=== PATIENT | male | born 1935 | race Caucasian/White ===

== ENCOUNTER → 2018-12-14 | Outpatient (CLI) | payer MEDICARE, BC ==
[~2018-12-14] MED LIST: AMLO10 PO; LOSA50 PO; NAPR250 PO; ONDA4ODT MM; SIMV10 PO; TERA5 PO; TRAM50 PO; VARDENAFIL HCL PO
== END | disposition home or self-care (01) ==
LOC: LAB EV 10:30 → LAB SHORT 10:30
DX: D36.17 Benign neoplasm of peripheral nerves and autonomic nervous system of trunk, unspecified (principal)
CPT/HCPCS: 88305

== ENCOUNTER 2019-02-23 05:50 | Day surgery (SDC) | payer MEDICARE, BC ==
[~2019-02-23] VITALS: Ht 170.2 cm; Wt 75.5 kg
[~2019-02-23 05:50] MED LIST changes: +ALBU90OI INH; +ATOR10 PO; +CBD OIL TOP; +COQ1050 MG PO; +FINA5 PO; +HYDRA50 PO; +TAMS.4ER PO; +[UNRECOGNIZED DRUG - OTHER] PO
--- NOTE | 2019-02-23 06:38 | NUR ---
History, Chart, Medications and Allergies reviewed before start of procedure. Patient confirms NPO status and agrees with scheduled surgery. Patient States Post-Procedure ride home has been arranged with his , Vane.
--- NOTE | 2019-02-23 11:17 | NUR ---
PT C/O OF FEELING DIZZY, EASILY STABILIZES WHEN STANDING, PASSED ON TO FAMILY MEMBERS THAT PLAN ON BEING HOME WITH PATIENT TODAY. Discharge instructions reviewed with patient. Patient verbalizes understanding. Copy given to patient to take home. Patient States Post-Procedure ride home has been arranged. Discharged via wheelchair to private car for ride home. ALL BELONINGS RETURNED TO PATIENT.
== END 2019-02-23 22:45 | disposition home or self-care (01) ==
LOC: ORSCMMR 05:50 → ORD 07:30 → ORSCMMR 07:30
DX: K40.90 Unilateral inguinal hernia, without obstruction or gangrene, not specified as recurrent (principal); I10 Essential (primary) hypertension; J45.909 Unspecified asthma, uncomplicated; Z79.899 Other long term (current) drug therapy
CPT/HCPCS: 49650; S2900; A9270-GY; C1781; J0690; J1100; J1885; J2250; J2405; J2704; J3010; J7120

== ENCOUNTER 2020-02-11 17:25 | Observation (INO) | payer OTHER, MEDICARE, BC ==
[~2020-02-11] VITALS: Ht 170.2 cm; Wt 74.8 kg
[~2020-02-11 17:25] MED LIST changes: -ATOR10 PO; +Clotrimazole15 GM TOP; +DULERA 200 MCG/13 GM INH; +FERSU90EL PO; +Felodipine ER10 MG PO; +MAGNESIUM OXID500 MG PO; +OMEP20ER PO; +ZYRTEC10 M2 PO; +Zantac150 MG PO
[2020-02-11 19:49] LABS: BASOPHILS ABSOLUTE AUTO 0.01 K/mm3 (0.00-0.23); BASOPHILS PERCENT AUTO 0 % (0-2); EOSINOPHILS PERCENT AUTO 0 % (0-6); Hematocrit 32.4 % (37.0-53.0); Hemoglobin 10.7 g/dL (13.5-17.5); IMMATURE GRAN ABSOLUTE AUTO 0.02 K/mm3 (0.00-0.10); IMMATURE GRAN PERCENT AUTO 0 % (0-1); LYMPHOCYTES ABSOLUTE AUTO 0.34 K/mm3 (0.84-5.20); LYMPHOCYTES PERCENT AUTO 7 % (21-46); MONOCYTES PERCENT AUTO 8 % (4-13); Mean Corpuscular HGB 30.3 pg (26.0-34.0); Mean Corpuscular Volume 92 fL (80-100); NEUTROPHILS ABSOLUTE AUTO 4.16 K/mm3 (1.96-9.15); NEUTROPHILS PERCENT AUTO 84 % (41-73); Platelet Count 180 K/mm3 (150-400); RDW Coefficient Variation 13.2 % (11.7-14.2); RDW Standard Deviation 44.5 fL (35.1-46.3); Red Blood Cell Count 3.53 M/mm3 (4.30-5.90); White Blood Cell Count 4.93 K/mm3 (4.00-11.30)
[2020-02-11 20:19] LABS: Troponin I 0.025 ng/mL (0.000-0.040)
[2020-02-11 20:35] LABS: Albumin/Globulin Ratio 0.8 (0.8-1.8); Bilirubin, Total 1.1 mg/dL (0.1-1.0); Bun/Creatinine Ratio 17.4 (12.0-20.0); Calcium, Blood 8.4 mg/dL (8.5-10.1); Creatinine, Blood 3.62 mg/dL (0.60-1.20); Globulin, Blood 3.6 g/dL (2.2-4.0); Potassium, Blood 4.2 mmol/L (3.5-5.5); Total Protein, Blood 6.6 g/dL (6.4-8.2)
[2020-02-11] MEDS ORDERED: ATOR40TA PO (21:54)
[2020-02-11] MEDS ORDERED: FELODIPINE ER10 MG PO (21:55)
[2020-02-11] MEDS ORDERED: METO25ER PO ×2 (21:55→21:56)
[2020-02-11] MEDS ORDERED: HYDCHL25 PO (21:56)
[2020-02-11] MEDS ORDERED: FAMO20 PO (21:56)
[2020-02-11] MEDS ORDERED: Aspir 8181 MG PO (21:57)
[2020-02-11] MEDS ORDERED: LOSA25 PO (21:57)
[2020-02-11] MEDS ORDERED: PRED1 PO (21:58)
--- NOTE | 2020-02-11 23:08 | NUR ---
84 YR OLD MALE ADMITTED TO FLOOR FROM THE ED WITH DX OF POSITIVE COVID 19. DROPLET PRECAUTIONS INITIATED PER MD ORDERS. ALERT AND ORIENTED. DISPLAYS ABILITY TO AMBULATE TO BR WITHOUT ASSIST. WILL CONT TO ASSESS. ORIENTED TO USE OF CALL LIGHT. CALL LIGHT IN REACH
--- NOTE | 2020-02-12 04:24 | NUR ---
SHIFT SUMMARY HAS BEEN RESTING QUITELY WITH OCCASIONAL INTERRUPTIONS THIS SHIFT. IVF INFUSING AT 75 ML/HR. DROPLET ISOLATION MAINTAINED FOR COVID 19 CARE. CALL LIGHT IN REACH. NO NOTED S/S ACUTE PHYSICAL DISTRESS AT THIS TIME.
[2020-02-12 05:09] LABS: BASOPHILS ABSOLUTE AUTO 0.01 K/mm3 (0.00-0.23); BASOPHILS PERCENT AUTO 0 % (0-2); EOSINOPHILS PERCENT AUTO 0 % (0-6); Hematocrit 27.3 % (37.0-53.0); Hemoglobin 8.9 g/dL (13.5-17.5); IMMATURE GRAN PERCENT AUTO 0 % (0-1); LYMPHOCYTES ABSOLUTE AUTO 0.39 K/mm3 (0.84-5.20); LYMPHOCYTES PERCENT AUTO 15 % (21-46); MONOCYTES ABSOLUTE AUTO 0.26 K/mm3 (0.16-1.47); MONOCYTES PERCENT AUTO 10 % (4-13); Mean Corpuscular HGB 30.7 pg (26.0-34.0); Mean Corpuscular HGB Conc 32.6 g/dL (31.5-36.5); Mean Corpuscular Volume 94 fL (80-100); Mean Platelet Volume 10.7 fL (9.1-12.4); NEUTROPHILS ABSOLUTE AUTO 1.87 K/mm3 (1.96-9.15); NEUTROPHILS PERCENT AUTO 74 % (41-73); Platelet Count 153 K/mm3 (150-400); RDW Coefficient Variation 13.2 % (11.7-14.2); RDW Standard Deviation 45.7 fL (35.1-46.3); White Blood Cell Count 2.53 K/mm3 (4.00-11.30)
[2020-02-12 05:35] LABS: Albumin, Blood 2.4 g/dL (3.4-5.0); Albumin/Globulin Ratio 0.8 (0.8-1.8); Bilirubin, Total 0.5 mg/dL (0.1-1.0); Bun/Creatinine Ratio 18.5 (12.0-20.0); Calcium, Blood 8.1 mg/dL (8.5-10.1); Creatinine, Blood 3.36 mg/dL (0.60-1.20); Globulin, Blood 3.2 g/dL (2.2-4.0); Total Protein, Blood 5.6 g/dL (6.4-8.2)
[2020-02-12 07:05] LABS: Adenovirus Not Detected (NOT DETECT); Coronavirus 229E Not Detected (NOT DETECT); Coronavirus HKU1 Not Detected (NOT DETECT); Coronavirus NL63 Not Detected (NOT DETECT); Coronavirus OC43 Not Detected (NOT DETECT)
[2020-02-12 07:06] LABS: Bordetella pertussis Not Detected (NOT DETECT); Chlamydophila pneumoniae Not Detected (NOT DETECT); Human Metapneumovirus Not Detected (NOT DETECT); Human Rhinovirus/Enterovirus Not Detected (NOT DETECT); Influenza A/2009-H1 Not Detected (NOT DETECT); Influenza A/H1 Not Detected (NOT DETECT); Influenza A/H3 Not Detected (NOT DETECT); Influenza B Not Detected (NOT DETECT); Mycoplasma pneumoniae Not Detected (NOT DETECT); Parainfluenza Virus 1 Not Detected (NOT DETECT); Parainfluenza Virus 2 Not Detected (NOT DETECT); Parainfluenza Virus 3 Not Detected (NOT DETECT); Parainfluenza Virus 4 Not Detected (NOT DETECT); Respiratory Syncytial Virus Not Detected (NOT DETECT); SARS-Cov-2 (COVID-19), BioFire Detected (NOT DETECT)
[2020-02-12] MEDS ORDERED: MAGNESIUM OXID500 MG PO (10:20)
[2020-02-12] MEDS ORDERED: LOSA25 PO (10:21)
[2020-02-12] MEDS ORDERED: OYSTER SHELL 51 EACH PO (10:22)
[2020-02-12] MEDS ORDERED: HYDCHL25 PO (10:23)
[2020-02-12] MEDS ORDERED: FELODIPINE ER10 MG PO (10:24)
[2020-02-12] MEDS ORDERED: TAMS.4ER PO (10:25)
[2020-02-12] MEDS ORDERED: FINA5 PO (10:25)
[2020-02-12] MEDS ORDERED: ZYRTEC10 M2 PO (10:25)
--- NOTE | 2020-02-12 13:06 | NUR ---
UPDATED MED REC MED REC HAS BEEN UPDATED AND NOW COMPLETE. DR. CIFUENTES HAS BEEN NOTIFIED OF THIS. VERBAL ORDER TO D/C DUPLICATE ORDER OF METOPROLOL 12.5 MG.
--- NOTE | 2020-02-12 18:23 | NUR ---
Shift Summary A/OX4, pleasant and cooperative with care. Up in chair for dinner, patient refused chair for lunch. Oxygen saturation is 93% on RA. PT/OT evaluated patient today, appears to be short of breath with exertion. Baseline oxygen is 2L @ HS. Med rec completed today as patient brought in meds. Up in room with SBA, continent to the bathroom. Calls appropriately for needs. Tele: SR PVC's 85. L/S with fine crackles at bases. Will continue to monitor and report to oncoming RN.
--- NOTE | 2020-02-13 04:42 | NUR ---
SUMMARY PT HAD NOTED TEMP THIS SHIFT. PT GIVEN TYLENOL W/ IMPROVEMENT. PT DENIES ANY INCREASE IN SOB. PT HAS BEEN VOIDING T/O SHIFT. PT HAD NO OTHER COMPLAINTS OR ISSUES NOTED. PT CURRENTLY SLEEPING IN NO DISTRESS. CALL LIGHT IN REACH.
[2020-02-13 05:43] LABS: Bun/Creatinine Ratio 17.4 (12.0-20.0); Calcium, Blood 8.2 mg/dL (8.5-10.1); Creatinine, Blood 3.17 mg/dL (0.60-1.20); Potassium, Blood 4.1 mmol/L (3.5-5.5)
--- NOTE | 2020-02-13 17:55 | NUR ---
NO ACUTE CHANGES THIS SHIFT. PT WAS ENCOURAGED TO BE IN THE PRONE POSITION FOR A WHILE WHICH HE STATED HELPED HIS BREATHING. HE WAS ENCOURAGED TO SIT BY THE WINDOW WHICH HE SAID HE ENJOYED. PT STATED HE DOESNT FEEL WELL BUT IS FEELING BETTER OVER ALL . SO STILL FEELING BAD BUT BETTER... CALL LIGHT WITHIN REACH.
--- NOTE | 2020-02-14 03:01 | NUR ---
SUMMARY PT HAD NO NOTED FEVERS THIS SHIFT. PT DENIES ANY PERIODS OF SOB. PT DID PREFER TO USE A URINAL TO VOID AND DID NOT WANT TO GET UP. PT REPORTS FEELING FATIGUED AND WENT TO SLEEP EARLY. PT HAS BEEN SLEEPING WELL. PT CURRENTLY SLEEPING AND IN NO DISTRESS. CALL LIGHT IN REACH.
--- NOTE | 2020-02-14 17:01 | NUR ---
SHIFT SUMMARY PT A/O X4; PLEASANT AND COOPERATIVE WITH CARE. NO ACUTE CHANGES THIS SHIFT. NO FEVERS NOTED AND TITRATED DOWN TO 1 LITER O2 VIA NC. USES THE URINAL IND IN THE BED. ENCOURAGED BY P.T. TO AMBULATE. PT AMBULATES WITH A FWW. VSS; RESTING COMFORTABLY W/CALL LIGHT IN REACH.
--- NOTE | 2020-02-15 04:49 | NUR ---
SHIFT SUMMARY ASSUMED CARE OF PT AT 1900. PT IS A/OX4. HEART SOUNDS REGULAR, TELEL SHOWS SINUS @ 90. LUNG SOUNDS CLEAR, STATES HE HAS SOB WITH EXCERTION, ON 2L NC AT NIGHT PER BASELINE. PT WAS INDEPENDENT TO BATHROOM. PT HAS NO OTHER COMPLAINTS. PT SLEPT DURING THE NIGHT. CALL LIGHT IN REACH, BED IN LOWEST POSITION, WILL CONTINUE TO MONITOR.
--- NOTE | 2020-02-15 17:29 | NUR ---
SHIFT SUMMARY PT A/O X4; PLEASANT AND COOPERATIVE WITH CARE. IND/SBA WITH A WALKER TO THE BATHROOM. PT WORKED WITH P.T. TODAY. CURRENTLY ON 1 LITER O2 VIA NC. ON 2 LITERS AT NOC AT BASELINE. VSS; RESTING QUIETLY WITH CALL LIGHT IN REACH.
--- NOTE | 2020-02-16 05:04 | NUR ---
SHIFT SUMMARY PATIENT HAD NO ACUTE CHANGES OBSERVED. AXOX 4 AND SBA TO BR. SOB W/EXERTION. ON 1L O2 NC. PIV REMAINS INTACT. FINISHING SUPERVISOR REPORTS NSR 73. TAKES MEDS WHOLE WITH WATER. DENIES PAIN AND N/V. VSS/AFEBRILE. DROPLET CONTACT. COVID-19 POSITIVE. COOPERATIVE WITH CARE. CALL LIGHT IN REACH. BED IN LOWEST POSITION. WILL CONTINUE TO MONITOR UNTIL DAY SHIFT NURSE ASSUMES CARE.
--- NOTE | 2020-02-16 12:52 | NUR ---
SHIFT SUMMARY. 1230 PT DISCHARGED HOME VIA PERSONAL VEHICLE ACCOMPANIED AND DRIVEN BY FAMILY. PT ESCORTED TO FACILITY ENTRANCE BY THIS RN. IV REMOVED. D/C INSTRUCTIONS REVIEWED WITH PT AND COPY PROVIDED. PT EDUCATED TO SELF QUARINTINE THROUGH 02/22/[address] DALLAS. INFECTION CONTROL AWARE OF PT'S D/C. NO NEW CHANGES OR CONCERNS.
== END 2020-02-16 12:25 | disposition home or self-care (01) ==
LOC: ER 17:25 → MEDS 22:21
PROVIDERS: Internal Medicine; Physician Assistant; ADMIT Internal Medicine
DX: U07.1 COVID-19 (principal); J96.21 Acute and chronic respiratory failure with hypoxia; J44.9 Chronic obstructive pulmonary disease, unspecified; N17.9 Acute kidney failure, unspecified; I12.9 Hypertensive chronic kidney disease with stage 1 through stage 4 chronic kidney disease, or unspecified chronic kidney disease; N18.4 Chronic kidney disease, stage 4 (severe); E86.0 Dehydration; K21.9 Gastro-esophageal reflux disease without esophagitis; I77.6 Arteritis, unspecified; I27.20 Pulmonary hypertension, unspecified; E78.5 Hyperlipidemia, unspecified; I34.0 Nonrheumatic mitral (valve) insufficiency; Z79.82 Long term (current) use of aspirin; Z79.52 Long term (current) use of systemic steroids; Z79.899 Other long term (current) drug therapy; Z88.5 Allergy status to narcotic agent; Z23 Encounter for immunization; Z87.891 Personal history of nicotine dependence
CPT/HCPCS: 0202U; 36415; 71045; 80048; 80053; 84484; 85025; 93005; 93010; 94760; 96361; 96372; 96374; 97110; 97116; 97162; 97166; 97535; 99285-25; A9270; A9270-GY; G0008; G0378; J1644; J2405; J7120; J7512; Q2038

== ENCOUNTER 2024-07-28 09:32 | Emergency (ER) | payer MEDICARE ==
[~2024-07-28] VITALS: Ht 170.2 cm; Wt 74.8 kg
[~2024-07-28 09:32] MED LIST changes: +ATOR40TA PO; +AZAT50 PO; +Amiodarone HCl200 MG PO; +Aspir 8181 MG PO; +BUME1 PO; +CALCIUM PO; +COQ-10100 MG PO; +ELIQUIS2.5 MG PO; +FAMO20 PO; +FELODIPINE ER10 MG PO; +FERSU300 PO; +FLOMAX0.4 MG PO; +FORMOTEROL20 MCG/2 M; +Flonase 0.05% N16 GM; +HYDCHL25 PO; +Imdur-ER60 MG PO; +LOSA25 PO; +METO25ER PO; +OYSTER SHELL 51 EACH PO; +PRED1 PO
[2024-07-28 10:03] LABS: BASOPHILS ABSOLUTE AUTO 0.02 K/mm3 (0.00-0.23); BASOPHILS PERCENT AUTO 0 % (0-2); EOSINOPHILS ABSOLUTE AUTO 0.18 K/mm3 (0.00-0.68); EOSINOPHILS PERCENT AUTO 3 % (0-6); Hematocrit 37.1 % (37.0-53.0); Hemoglobin 12.2 g/dL (13.5-17.5); IMMATURE GRAN ABSOLUTE AUTO 0.02 K/mm3 (0.00-0.10); IMMATURE GRAN PERCENT AUTO 0 % (0-1); LYMPHOCYTES ABSOLUTE AUTO 0.77 K/mm3 (0.84-5.20); LYMPHOCYTES PERCENT AUTO 12 % (21-46); MONOCYTES ABSOLUTE AUTO 0.73 K/mm3 (0.16-1.47); MONOCYTES PERCENT AUTO 11 % (4-13); Mean Corpuscular HGB 32.1 pg (26.0-34.0); Mean Corpuscular HGB Conc 32.9 g/dL (31.5-36.5); Mean Corpuscular Volume 98 fL (80-100); Mean Platelet Volume 10.1 fL (9.1-12.4); NEUTROPHILS ABSOLUTE AUTO 4.74 K/mm3 (1.96-9.15); NEUTROPHILS PERCENT AUTO 73 % (41-73); Platelet Count 204 K/mm3 (150-400); RDW Coefficient Variation 13.9 % (11.7-14.2); RDW Standard Deviation 49.9 fL (35.1-46.3); White Blood Cell Count 6.46 K/mm3 (4.00-11.30)
[2024-07-28 10:24] LABS: Albumin, Blood 3.2 g/dL (3.4-5.0); Albumin/Globulin Ratio 1.1 (0.8-1.8); Bilirubin, Total 0.4 mg/dL (0.1-1.0); Bun/Creatinine Ratio 15.1 (12.0-20.0); Calcium, Blood 8.4 mg/dL (8.5-10.1); Creatinine, Blood 3.38 mg/dL (0.60-1.20); Potassium, Blood 4.2 mmol/L (3.5-5.5); Total Protein, Blood 6.2 g/dL (6.4-8.2)
[2024-07-28] MEDS ORDERED: NS 1,000 ML IV SCH (11:30)
[2024-07-28] MEDS ORDERED: FURO20 PO (14:27)
[2024-07-28 14:54] VITALS: BP 126/83
== END 2024-07-28 14:50 | disposition home or self-care (01) ==
LOC: ER 09:32
PROVIDERS: Student in an Organized Health Care Education/Training Program
DX: R42 Dizziness and giddiness (principal); T50.1X5A Adverse effect of loop [high-ceiling] diuretics, initial encounter; N18.9 Chronic kidney disease, unspecified; Z87.891 Personal history of nicotine dependence
CPT/HCPCS: 71045; 80053; 84484; 85025; 93005; 93010; 99284-25; J7030

== ENCOUNTER 2024-10-02 16:05 | Inpatient (IN) | payer MEDICARE ==
[~2024-10-02] VITALS: Ht 170.2 cm; Wt 76.0 kg
[~2024-10-02 16:05] MED LIST changes: +FURO20 PO; +METO50ER PO
[2024-10-02 19:47] LABS: BASOPHILS ABSOLUTE AUTO 0.01 K/mm3 (0.00-0.23); BASOPHILS PERCENT AUTO 0 % (0-2); EOSINOPHILS ABSOLUTE AUTO 0.17 K/mm3 (0.00-0.68); EOSINOPHILS PERCENT AUTO 3 % (0-6); Hematocrit 32.0 % (37.0-53.0); Hemoglobin 10.5 g/dL (13.5-17.5); IMMATURE GRAN ABSOLUTE AUTO 0.01 K/mm3 (0.00-0.10); IMMATURE GRAN PERCENT AUTO 0 % (0-1); LYMPHOCYTES ABSOLUTE AUTO 0.63 K/mm3 (0.84-5.20); LYMPHOCYTES PERCENT AUTO 12 % (21-46); MONOCYTES ABSOLUTE AUTO 0.69 K/mm3 (0.16-1.47); MONOCYTES PERCENT AUTO 13 % (4-13); Mean Corpuscular HGB Conc 32.8 g/dL (31.5-36.5); Mean Corpuscular Volume 99 fL (80-100); NEUTROPHILS ABSOLUTE AUTO 3.66 K/mm3 (1.96-9.15); NEUTROPHILS PERCENT AUTO 71 % (41-73); NRBC ABSOLUTE 0.00 K/mm3 (0.00-0.02); NRBC Auto 0.0 /100 WBC (0.0-0.2); Platelet Count 186 K/mm3 (150-400); RDW Coefficient Variation 14.6 % (11.7-14.2); RDW Standard Deviation 52.3 fL (35.1-46.3)
[2024-10-02] MEDS ORDERED: Ondansetron HCl 2 MG / ML 2ML Vial IV PRN (20:05)
[2024-10-02] MEDS ORDERED: Albuterol 2.5 MG/3 ML VIAL INH PRN (20:15)
[2024-10-02] MEDS ORDERED: Formoterol/Mometasone MDI 5/200 mcg 13 GM INH SCH (20:30)
[2024-10-02 21:03] VITALS: BP 153/63
[2024-10-02 21:45] LABS: Alanine Aminotransfer (ALT/SGP 36.0 U/L (12-78); Albumin, Blood 3.3 g/dL (3.4-5.0); Albumin/Globulin Ratio 1.1 (0.8-1.8); Anion Gap 8.0 mmol/L (3-11); Aspartate Aminotrans (AST/SGOT 23.0 U/L (12-37); Bilirubin, Total 0.9 mg/dL (0.1-1.0); Blood Urea Nitrogen 45.0 mg/dL (8-24); CO2, Blood 27.0 mmol/L (21-32); Calcium, Blood 8.7 mg/dL (8.5-10.1); Chloride, Blood 109.0 mmol/L (98-108); Creatinine, Blood 2.89 mg/dL (0.60-1.20); Globulin, Blood 3.1 g/dL (2.2-4.0); Glucose, Blood 110.0 mg/dL (70-99); Potassium, Blood 4.0 mmol/L (3.5-5.5); Sodium, Blood 140.0 mmol/L (136-145); Total Protein, Blood 6.4 g/dL (6.4-8.2)
--- NOTE | 2024-10-02 22:55 | NUR ---
PATIENT IS A NEW ADMIT FROM THE ED. ALERT ORIENTED ARRIVED VIA W/C. SBA ASSIST TRANSFER TO BED. REPORTS NOT DIZZY AT THIS TIME. DENIES CHEST PAIN, SOB, AND N/V. ONE ASSIST TO BR. TELEMETRY PLACED AND SB 50. DAUGHTER PRESENT FROM [place] AND STAYING OVERNIGHT. REPORTS LIVES ALONE WITH DOG IN HIS HOUSE. ORIENTED TO ROOM AND CALL LIGHT SYSTEM. WCTM.
[2024-10-03 00:05] VITALS: BP 130/50
--- NOTE | 2024-10-03 02:20 | NUR ---
TELEMETRY REMAINS SINUS TERRY 51. SLEEPING. WCTM.
--- NOTE | 2024-10-03 04:03 | NUR ---
SHIFT SUMMARY PATIENT HAD NO ACUTE CHANGES. ALERT ORIENTED AND ONE ASSIST TO BR. DENIES CHEST PAIN, SOB, AND N/V. ON ROOM AIR. PIV INTACT. TELEMETRY SB 51. DAUGHTER STAYED OVERNIGHT. NO NEW CONCERNS. CALL LIGHT IN REACH. BED IN LOWEST POSITION. WILL CONTINUE TO MONITOR UNTIL DAY SHIFT NURSE ASSUMES CARE.
[2024-10-03 04:28] VITALS: BP 141/69
[2024-10-03 05:03] LABS: Hematocrit 31.7 % (37.0-53.0); Hemoglobin 10.2 g/dL (13.5-17.5); Mean Corpuscular HGB Conc 32.2 g/dL (31.5-36.5); Mean Corpuscular Volume 99 fL (80-100); NRBC ABSOLUTE 0.00 K/mm3 (0.00-0.02); NRBC Auto 0.0 /100 WBC (0.0-0.2); Platelet Count 168 K/mm3 (150-400); RDW Coefficient Variation 14.1 % (11.7-14.2); RDW Standard Deviation 51.6 fL (35.1-46.3)
[2024-10-03 05:26] LABS: Anion Gap 7.0 mmol/L (3-11); Blood Urea Nitrogen 46.0 mg/dL (8-24); CO2, Blood 26.0 mmol/L (21-32); Calcium, Blood 8.1 mg/dL (8.5-10.1); Chloride, Blood 112.0 mmol/L (98-108); Creatinine, Blood 2.82 mg/dL (0.60-1.20); Glucose, Blood 83.0 mg/dL (70-99); Magnesium, Blood 2.4 mg/dL (1.6-2.4); Potassium, Blood 4.0 mmol/L (3.5-5.5); Sodium, Blood 141.0 mmol/L (136-145)
[2024-10-03 07:34] VITALS: BP 142/65
[2024-10-03] MEDS ORDERED: ATOR40TA PO (14:43)
[2024-10-03] MEDS ORDERED: [UNRECOGNIZED DRUG - OTHER] PO (14:49)
[2024-10-03] MEDS ORDERED: FLUTICASONE-SAL12 G1 INH (14:50)
[2024-10-03] MEDS ORDERED: CALCIUM 250 MG1 EACH PO (14:54)
[2024-10-03] MEDS ORDERED: LIDO700A20 TOP (14:55)
[2024-10-03] MEDS ORDERED: ALEVAZOL56.7 G1 TOP (14:56)
[2024-10-03] MEDS ORDERED: FERSU300 PO (14:56)
[2024-10-03] MEDS ORDERED: Ketoconazole120 ML TOP (14:59)
[2024-10-03] MEDS ORDERED: AMLO5 PO (15:00)
[2024-10-03] MEDS ORDERED: Diovan40 MG PO (15:02)
[2024-10-03] MEDS ORDERED: ASCO500 PO (15:04)
[2024-10-03] MEDS ORDERED: LORA10ER PO (15:05)
[2024-10-03 15:18] VITALS: BP 159/66
--- NOTE | 2024-10-03 16:49 | NUR ---
SHIFT SUMMARY: A&OX4 THIS SHIFT. PLEASANT AND COOPERATIVE WITH CARE PROVIDED BY STAFF. TREATED WITH IV ABX PER EMAR. DENIES PAIN THROUGHOUT THIS SHIFT. PT HAS BEEN RESTING ON AND OFF WITH CPAP. O2 SATS >90% WITH CPAP AND ON RA. COMPLAINTS OF CONSTIPATION AND TREATED PER EMAR, YET HAS NOT HAD A BOWEL MOVEMENT. BED REMAINS IN THE LOWEST POSITION WITH CALL IN NEAR.
--- NOTE | 2024-10-03 16:58 | NUR ---
SHIFT SUMMARY: A&OX4 THIS SHIFT. PLEASANT AND COOPERATIVE WITH CARE. DAUGHTER IN ROOM THROUGHOUT DAY. PT HAS GOTTEN OUT OF BED TO AMBULATE AROUND ROOM MULTIPLE TIMES THIS SHIFT. DENIES COMPLAINTS OF CHEST PAIN OR PRESSURE. HEART RATE REMAINS BRADYCARDIC. BED IN THE LOWEST POSITION. CALL LT WITHIN REACH.
[2024-10-03 19:41] VITALS: BP 148/57
[2024-10-03] MEDS ORDERED: Misc. Capsule PO SCH (21:00)
[2024-10-03] MEDS ORDERED: Calcium 500 MG/Vit D 200 Units Tab PO SCH (21:00)
[2024-10-04] VITALS (7 sets, daily range): BP systolic 130–155; BP diastolic 60–74
--- NOTE | 2024-10-04 04:50 | NUR ---
SHIFT SUMMARY NOC PT A/O X 4. PLEASANT AND COOPERATIVE WITH CARE. VSS. NO ACUTE EVENTS ON TELE TO REPORT. PT RUNNING SINUS TERRY IN HIGH 50'S. PT STILL HAVING C/O OF SOB WITH AMBULATION AND HAS BEEN USING CALL LIGHT FOR SBA TO BATHROOM FOR SAFETY. PT FAMILY WILL BRING IN BOTTLE FOR AVOCOPAN IN AM SO PHARMACY CAN PUT SCAN TAG ON IT. PT HAD HOME MEDICATIONS ON PERSON AN THEY HAVE BEEN LABELED AND PUT IN LOCKED MED DRAWER. PT HAS CARDIOLOGY CONSULT CALLED IN FOR TODAY. PT CURRENTLY RESTING WITH BED IN LOWEST POSITION, AND CALL LIGHT WITHIN REACH.
[2024-10-04 05:06] LABS: BASOPHILS ABSOLUTE AUTO 0.02 K/mm3 (0.00-0.23); BASOPHILS PERCENT AUTO 0 % (0-2); EOSINOPHILS ABSOLUTE AUTO 0.25 K/mm3 (0.00-0.68); EOSINOPHILS PERCENT AUTO 6 % (0-6); Hematocrit 31.8 % (37.0-53.0); Hemoglobin 10.5 g/dL (13.5-17.5); IMMATURE GRAN ABSOLUTE AUTO 0.01 K/mm3 (0.00-0.10); IMMATURE GRAN PERCENT AUTO 0 % (0-1); LYMPHOCYTES ABSOLUTE AUTO 0.73 K/mm3 (0.84-5.20); LYMPHOCYTES PERCENT AUTO 16 % (21-46); MONOCYTES ABSOLUTE AUTO 0.70 K/mm3 (0.16-1.47); MONOCYTES PERCENT AUTO 16 % (4-13); Mean Corpuscular HGB Conc 33.0 g/dL (31.5-36.5); Mean Corpuscular Volume 97 fL (80-100); NEUTROPHILS ABSOLUTE AUTO 2.78 K/mm3 (1.96-9.15); NEUTROPHILS PERCENT AUTO 62 % (41-73); NRBC ABSOLUTE 0.00 K/mm3 (0.00-0.02); NRBC Auto 0.0 /100 WBC (0.0-0.2); Platelet Count 177 K/mm3 (150-400); RDW Coefficient Variation 13.9 % (11.7-14.2); RDW Standard Deviation 49.8 fL (35.1-46.3)
[2024-10-04 05:28] LABS: Anion Gap 8.0 mmol/L (3-11); Blood Urea Nitrogen 38.0 mg/dL (8-24); CO2, Blood 25.0 mmol/L (21-32); Calcium, Blood 8.1 mg/dL (8.5-10.1); Chloride, Blood 112.0 mmol/L (98-108); Creatinine, Blood 2.72 mg/dL (0.60-1.20); Glucose, Blood 91.0 mg/dL (70-99); Potassium, Blood 4.0 mmol/L (3.5-5.5); Sodium, Blood 141.0 mmol/L (136-145)
[2024-10-04] MEDS ORDERED: Isosorbide Mononitrate 60 MG TABCR PO SCH (09:00)
[2024-10-04] MEDS ORDERED: Fluticasone 0.05% Nasal Spray SCH (09:00)
[2024-10-04] MEDS ORDERED: Lidocaine 4% 1 Patch TOP SCH (09:00)
[2024-10-04] MEDS ORDERED: Misc. Capsule PO SCH (10:00)
--- NOTE | 2024-10-04 14:12 | NUR ---
Pt. is wake in bed when he welcomes my visit. Pt. is pleasant and very quickly the life review centers on matters of ju and belief. Pt. displayed evidence of trust and engagement. Facilitated more life review and listened with empathy and interest as the Pt. verbalized some grief about the fairly recent passing of his . Pastoral bereavement has a positive affect. Prayed with the Pt. Pt. verbalized gratitude for the spiritual care visit and welcomed this product tester fiberglass to bring him a bible. After visit a bible is brought to him. Pt. verbalized gratitude for the spiritual care visit.
--- NOTE | 2024-10-04 16:22 | NUR ---
SHIFT SUMMARY: PATIENT IS ALERT AND ORIENTEDX4/INDEPENDENT/SBA. NO EVENTS ON TELE; PENDING A STRESS TEST 10/05/24 AND PACER PLACEMENT 10/07/24. SEE ORDERS. PATIENT STARTED ON NEW MEDICATIONS TODAY PER CARDIOLOGY. PATIENT IN HIS ROOM, IN BED, CALL LIGHT WITHIN REACH, NO SIGNS OR SYMPTOMS OF DISTRESS,PLAN OF CARE ONGOING.
[2024-10-04] MEDS ORDERED: Heparin Sodium,Porcine 5,000 UNIT/0.5 ML SDV SC SCH (21:00)
[2024-10-05 04:41] VITALS: BP 138/65
--- NOTE | 2024-10-05 05:19 | NUR ---
SHIFT SUMMARY NOC PT A/O X 4. PLEASANT AND COOPERATIVE WITH CARE. HR HAS BEEN IN 50'S SINUS RHYTHM/BBB ON TELE. PT TOOK SHOWER AT BEGINNING OF SHIFT AND HAD ALLERGIC REACTION WITH RASH AND ITCHING, BENADRYL ORDERED AND RELIEVED ITCHING AND RASH. PT HAS BEEN NPO SINCE MIDNIGHT FOR STRESS TEST TODAY. PT HAD CARIOLOGY CONSULT YESTERDAY WITH POSSIBLE PACEMAKER PLACEMENT ON TUESDAY. PT CURRENTLY RESTING WITH BED IN LOWEST POSITION, AND CALL LIGHT WITHIN REACH.
[2024-10-05 05:24] LABS: BASOPHILS ABSOLUTE AUTO 0.01 K/mm3 (0.00-0.23); BASOPHILS PERCENT AUTO 0 % (0-2); EOSINOPHILS ABSOLUTE AUTO 0.22 K/mm3 (0.00-0.68); EOSINOPHILS PERCENT AUTO 5 % (0-6); Hematocrit 31.4 % (37.0-53.0); Hemoglobin 10.2 g/dL (13.5-17.5); IMMATURE GRAN ABSOLUTE AUTO 0.01 K/mm3 (0.00-0.10); IMMATURE GRAN PERCENT AUTO 0 % (0-1); LYMPHOCYTES ABSOLUTE AUTO 0.60 K/mm3 (0.84-5.20); LYMPHOCYTES PERCENT AUTO 13 % (21-46); MONOCYTES ABSOLUTE AUTO 0.61 K/mm3 (0.16-1.47); MONOCYTES PERCENT AUTO 14 % (4-13); Mean Corpuscular HGB Conc 32.5 g/dL (31.5-36.5); Mean Corpuscular Volume 98 fL (80-100); NEUTROPHILS ABSOLUTE AUTO 3.08 K/mm3 (1.96-9.15); NEUTROPHILS PERCENT AUTO 68 % (41-73); NRBC ABSOLUTE 0.00 K/mm3 (0.00-0.02); NRBC Auto 0.0 /100 WBC (0.0-0.2); Platelet Count 184 K/mm3 (150-400); RDW Coefficient Variation 13.9 % (11.7-14.2); RDW Standard Deviation 50.3 fL (35.1-46.3)
[2024-10-05 06:00] LABS: Anion Gap 8.0 mmol/L (3-11); Blood Urea Nitrogen 36.0 mg/dL (8-24); CO2, Blood 26.0 mmol/L (21-32); Calcium, Blood 8.5 mg/dL (8.5-10.1); Chloride, Blood 111.0 mmol/L (98-108); Creatinine, Blood 2.87 mg/dL (0.60-1.20); Glucose, Blood 95.0 mg/dL (70-99); Potassium, Blood 4.4 mmol/L (3.5-5.5); Sodium, Blood 141.0 mmol/L (136-145)
[2024-10-05 07:38] VITALS: BP 137/59
[2024-10-05 11:26] VITALS: BP 141/64
--- NOTE | 2024-10-05 16:10 | NUR ---
SHIFT SUMMARY: PATIENT UNDERWENT HIS STRESS TEST TODAY; PER DR. DUNBAR TO NOTIFY THE PATIENT THAT THE RESULTS WERE NORMAL. PT NOTIFIED. PATIENT AWAITING PACER PLACEMENT FOR Tuesday10/07/24. NO EVENTS ON TELE. HE'S IN BED, ALERT, CALL LIGHT WITHIN REACH, NO SIGNS OR SYMPTOMS OF DISTRESS, PLAN OF CARE ONGOING.
[2024-10-05 16:53] VITALS: BP 135/65
[2024-10-05 19:37] VITALS: BP 148/65
[2024-10-05 19:38] VITALS: BP 148/65
[2024-10-06] VITALS (7 sets, daily range): BP systolic 127–159; BP diastolic 60–80
--- NOTE | 2024-10-06 06:05 | NUR ---
SUMMARY A&O X4. VSS. SELF MANAGING & ASKS FOR ASSISTANCE IF NEEDED. ON TELE-W/ SINUS TERRY READING CONSTANTLY YET ASYMPTOMATIC. PT IS VERY AWARE OF THE PLAN TO HAVE A PACEMAKER ON TUESDAY THEN DISCHARGE THE DAY AFTER. RESTED WELL, NO CONCERN TONIGHT. REMOVED IV DUE TO LEAK AND BLOOD CLOT PARTICLES SURROUNDING.
[2024-10-06] MEDS ORDERED: CHLORHEXIDINE 4% TOP ONE (08:30)
[2024-10-06] MEDS ORDERED: [UNRECOGNIZED DRUG - OTHER] TOP ONE (08:30)
[2024-10-06 08:56] LABS: BASOPHILS ABSOLUTE AUTO 0.01 K/mm3 (0.00-0.23); BASOPHILS PERCENT AUTO 0 % (0-2); EOSINOPHILS ABSOLUTE AUTO 0.19 K/mm3 (0.00-0.68); EOSINOPHILS PERCENT AUTO 4 % (0-6); Hematocrit 34.1 % (37.0-53.0); Hemoglobin 11.3 g/dL (13.5-17.5); IMMATURE GRAN ABSOLUTE AUTO 0.01 K/mm3 (0.00-0.10); IMMATURE GRAN PERCENT AUTO 0 % (0-1); LYMPHOCYTES ABSOLUTE AUTO 0.64 K/mm3 (0.84-5.20); LYMPHOCYTES PERCENT AUTO 13 % (21-46); MONOCYTES ABSOLUTE AUTO 0.70 K/mm3 (0.16-1.47); MONOCYTES PERCENT AUTO 14 % (4-13); Mean Corpuscular HGB Conc 33.1 g/dL (31.5-36.5); Mean Corpuscular Volume 97 fL (80-100); NEUTROPHILS ABSOLUTE AUTO 3.36 K/mm3 (1.96-9.15); NEUTROPHILS PERCENT AUTO 68 % (41-73); NRBC ABSOLUTE 0.00 K/mm3 (0.00-0.02); NRBC Auto 0.0 /100 WBC (0.0-0.2); Platelet Count 184 K/mm3 (150-400); RDW Coefficient Variation 14.1 % (11.7-14.2); RDW Standard Deviation 49.6 fL (35.1-46.3)
[2024-10-06 09:16] LABS: Anion Gap 9.0 mmol/L (3-11); Blood Urea Nitrogen 32.0 mg/dL (8-24); CO2, Blood 24.0 mmol/L (21-32); Calcium, Blood 8.5 mg/dL (8.5-10.1); Chloride, Blood 108.0 mmol/L (98-108); Creatinine, Blood 2.9 mg/dL (0.60-1.20); Glucose, Blood 95.0 mg/dL (70-99); Potassium, Blood 4.5 mmol/L (3.5-5.5); Sodium, Blood 136.0 mmol/L (136-145)
--- NOTE | 2024-10-06 10:51 | NUR ---
CALLED [facility] TO GIVE ALL HEART MEDS.
--- NOTE | 2024-10-06 17:06 | NUR ---
PT PLEASANT TODAY. PENDING PACER TOMORROW AM. NPO MIDNITE. VSS. PT RESTING AT THIS TIME. AMBULATED TO BATHROOM SBA TO IND. REPORTS OCCATIONAL WEAK OR DIZZY. R/T LOW H/R. NO OTHER CONCERNS NOTED. BED IN LOW POSITION, CALL LITE IN [facility], CALLS APPROP
[2024-10-06] MEDS ORDERED: NS 1,000 ML IV SCH (21:00)
[2024-10-07] VITALS (7 sets, daily range): BP systolic 128–172; BP diastolic 64–85
[2024-10-07 04:57] LABS: BASOPHILS ABSOLUTE AUTO 0.01 K/mm3 (0.00-0.23); BASOPHILS PERCENT AUTO 0 % (0-2); EOSINOPHILS ABSOLUTE AUTO 0.26 K/mm3 (0.00-0.68); EOSINOPHILS PERCENT AUTO 6 % (0-6); Hematocrit 32.7 % (37.0-53.0); Hemoglobin 10.8 g/dL (13.5-17.5); IMMATURE GRAN ABSOLUTE AUTO 0.02 K/mm3 (0.00-0.10); IMMATURE GRAN PERCENT AUTO 0 % (0-1); LYMPHOCYTES ABSOLUTE AUTO 0.67 K/mm3 (0.84-5.20); LYMPHOCYTES PERCENT AUTO 14 % (21-46); MONOCYTES ABSOLUTE AUTO 0.76 K/mm3 (0.16-1.47); MONOCYTES PERCENT AUTO 16 % (4-13); Mean Corpuscular HGB Conc 33.0 g/dL (31.5-36.5); Mean Corpuscular Volume 98 fL (80-100); NEUTROPHILS ABSOLUTE AUTO 2.98 K/mm3 (1.96-9.15); NEUTROPHILS PERCENT AUTO 63 % (41-73); NRBC ABSOLUTE 0.00 K/mm3 (0.00-0.02); NRBC Auto 0.0 /100 WBC (0.0-0.2); Platelet Count 192 K/mm3 (150-400); RDW Coefficient Variation 13.8 % (11.7-14.2); RDW Standard Deviation 49.1 fL (35.1-46.3)
[2024-10-07 05:26] LABS: Anion Gap 8.0 mmol/L (3-11); Blood Urea Nitrogen 34.0 mg/dL (8-24); CO2, Blood 25.0 mmol/L (21-32); Calcium, Blood 8.6 mg/dL (8.5-10.1); Chloride, Blood 112.0 mmol/L (98-108); Creatinine, Blood 2.99 mg/dL (0.60-1.20); Glucose, Blood 90.0 mg/dL (70-99); Potassium, Blood 4.5 mmol/L (3.5-5.5); Sodium, Blood 140.0 mmol/L (136-145)
--- NOTE | 2024-10-07 07:01 | NUR ---
SUMMARY PLEASANTLY COOPERATIVE TO CARE. INSERTED G20 IV CANNULA BY L FOREARM & INITIATED IVF. CONFIRMED W/ DR RAINEY BY TELEPHONE ORDER TO GIVE HEPARIN FOR TONIGHT. MAINTAIN NPO MN. NO CONCERN AND SLEPT WELL AT NIGHT. HIGHLY AMENABLE TO INSTRUCTIONS.
[2024-10-07] MEDS ORDERED: CeFAZolin Sodium 2,000 MG VIAL ONE (07:19)
[2024-10-07] MEDS ORDERED: Bupivacaine 0.5% HCl 5 MG/ML 30MLVIAL ONE (07:20)
[2024-10-07] MEDS ORDERED: Heparin Sodium 1000 Units/ML 10ML MDV ONE (07:20)
[2024-10-07] MEDS ORDERED: NS 0 ML IV ONE (07:20)
[2024-10-07] MEDS ORDERED: NS 1,000 ML IV ONE ×2 (07:20)
[2024-10-07] MEDS ORDERED: CeFAZolin Sodium 1000 mg Vial ONE (07:21)
[2024-10-07] MEDS ORDERED: NS 100 ML IV ONE (07:24)
[2024-10-07] MEDS ORDERED: FentaNYL Citrate 50 MCG/ML 2 ML Injection ONE ×2 (07:34→08:42)
[2024-10-07] MEDS ORDERED: Midazolam HCl 1MG / ML 2ML Vial ONE ×2 (07:34→08:42)
--- NOTE | 2024-10-07 07:58 | NUR ---
PT A/O X3 PLEASANT AND TALKATIVE. AMBULATED TO BATHROOM WITH SBA TO MIN BALANCE TOUCH. PT VOIDED. AMBULATED BACK TO BED. IV INFUSING NS PER ORDERS. H/R REG, TERRY TO NSR. BBB. NO EDEMA NOTED. LUNGS CLEAR, RESP EASY, UNLABORED. ON R/A. BT X4 PT STATES LAST BM YEST. MINOR BALANCE ISSUE WITH AMBULATION. NO OTHER CONCERNS NOTED. BED IN LOW POSITION, CALL LITE IN REACH, CALLS APPROP
--- NOTE | 2024-10-07 08:07 | NUR ---
PT TO [facility] 07;50
--- NOTE | 2024-10-07 08:49 | NUR ---
REPORT TO LIZETH RAJAN
--- NOTE | 2024-10-07 10:10 | NUR ---
PT ARRIVED TO UNIT FROM [facility]. HE IS ON 4LNC W/O2 SATS > 90%. PACER SITE IS CLEAN AND DRY W/NO REDNESS. LEFT ARM IS IMMOBILIZED WELL. HE AROUSES TO STIMULI. BED IN LOW POSITION, CALL LIGHT AND PERSONAL BELONGINGS IN REACH.
[2024-10-07] MEDS ORDERED: CeFAZolin Sodium 1,000 MG in NS 50 ML IV SCH (16:00)
--- NOTE | 2024-10-07 16:53 | NUR ---
PT IS A&Ox4 AND ABLE TO MAKE NEEDS KNOWN. HE IS ON RA W/O2 SATS > 90%. PACER SITE NOW HAS SOME BRUISING AROUND IT, THERE IS NO FIRMNESS WHEN PALPATING THE SITE. PTS LEFT ARM IS STILL IMMOBILIZED. HE IS CURRENTLY IN BED W/EYES CLOSED W/EVEN RISE AND FALL OF CHEST. NO NEEDS OR CONCERNS NOTED @ THIS TIME. BED IN LOW POSITION, CALL LIGHT AND PERSONAL BELONGINGS IN REACH.
[2024-10-08] MEDS ORDERED: CeFAZolin Sodium 1,000 MG in NS 50 ML IV ONE (00:10)
[2024-10-08 00:35] VITALS: BP 119/75
[2024-10-08 03:04] VITALS: BP 141/86
[2024-10-08 05:43] LABS: Hematocrit 31.7 % (37.0-53.0); Hemoglobin 10.4 g/dL (13.5-17.5); Mean Corpuscular HGB Conc 32.8 g/dL (31.5-36.5); Mean Corpuscular Volume 99 fL (80-100); NRBC ABSOLUTE 0.00 K/mm3 (0.00-0.02); NRBC Auto 0.0 /100 WBC (0.0-0.2); Platelet Count 186 K/mm3 (150-400); RDW Coefficient Variation 14.1 % (11.7-14.2); RDW Standard Deviation 51.9 fL (35.1-46.3)
[2024-10-08 06:02] LABS: Anion Gap 6.0 mmol/L (3-11); Blood Urea Nitrogen 33.0 mg/dL (8-24); CO2, Blood 25.0 mmol/L (21-32); Calcium, Blood 8.7 mg/dL (8.5-10.1); Chloride, Blood 111.0 mmol/L (98-108); Creatinine, Blood 3.02 mg/dL (0.60-1.20); Glucose, Blood 96.0 mg/dL (70-99); Potassium, Blood 5.0 mmol/L (3.5-5.5); Sodium, Blood 137.0 mmol/L (136-145)
--- NOTE | 2024-10-08 06:28 | NUR ---
SHIFT SUMMARY: PT A&OX4 CALM AND COOPERATIVE. DESAT TO 80S WHILE SLEEPING. APPLIED 2L NC AND MAINTAINED >92%. VSS. ARM RESTRICTIONS IN PLACE D/T PACEMAKER PLACEMENT. BRUISING AROUND SITE. SITE IS SOFT HAT BINDER AND WELL APPROXIMATED. BED AND LINEN GOWN CHANGE COMPLETED. 1 PERSON ASSIST TO BR D/T GENERALIED WEAKNESS. USES URINAL. CALLS APPROPRIATELY AND CALL LIGHT WITHIN REACH. BED IS LOW AND LOCKED. WILL CONTINUE PLAN OF CARE TILL REPORT GIVEN TO DAY NURSE.
[2024-10-08 08:59] VITALS: BP 138/89
[2024-10-08 12:16] VITALS: BP 135/67
[2024-10-08] MEDS ORDERED: ACET325 PO (13:15)
[2024-10-08] MEDS ORDERED: JARDIANCE10 MG PO (13:16)
--- NOTE | 2024-10-08 17:39 | NUR ---
DISCHARGE INSTRUCTIONS REVIEWED, [facility] DC'D WITH ARM SLING IN PLACE TO LEFT ARM.
== END 2024-10-08 14:00 | disposition home or self-care (01) | DRG 243 ==
LOC: ER 16:05 → MEDS 20:05 → PCU 10-07 08:00 → MEDS 10-07 08:00 → PCU 10-07 20:31
PROVIDERS: Emergency Medicine; Internal Medicine; Internal Medicine Cardiovascular Disease; Nurse Practitioner Acute Care; ADMIT Student in an Organized Health Care Education/Training Program
PROC: 0JH606Z Insertion of Pacemaker, Dual Chamber into Chest Subcutaneous Tissue and Fascia, Open Approach (ICD-10-PCS; principal; 2024-10-07)
PROC: 02H63JZ Insertion of Pacemaker Lead into Right Atrium, Percutaneous Approach (ICD-10-PCS; 2024-10-07)
PROC: 02HK3JZ Insertion of Pacemaker Lead into Right Ventricle, Percutaneous Approach (ICD-10-PCS; 2024-10-07)
DX: I49.5 Sick sinus syndrome (principal); I13.0 Hypertensive heart and chronic kidney disease with heart failure and stage 1 through stage 4 chronic kidney disease, or unspecified chronic kidney disease; I50.32 Chronic diastolic (congestive) heart failure; N18.4 Chronic kidney disease, stage 4 (severe); M31.7 Microscopic polyangiitis; I44.7 Left bundle-branch block, unspecified; I48.0 Paroxysmal atrial fibrillation; N40.0 Benign prostatic hyperplasia without lower urinary tract symptoms; K21.9 Gastro-esophageal reflux disease without esophagitis; E78.5 Hyperlipidemia, unspecified; D63.1 Anemia in chronic kidney disease; I42.8 Other cardiomyopathies; J43.9 Emphysema, unspecified; I77.6 Arteritis, unspecified; I08.3 Combined rheumatic disorders of mitral, aortic and tricuspid valves; I27.20 Pulmonary hypertension, unspecified; Z79.01 Long term (current) use of anticoagulants; Z79.899 Other long term (current) drug therapy; Z79.51 Long term (current) use of inhaled steroids; Z88.5 Allergy status to narcotic agent
CPT/HCPCS: 33208; 36415; 71046; 78452; 80048; 80053; 83735; 83880; 84443; 84484; 85025; 85027; 93005; 93010; 93017; 93306; 94640; 94664; 94760; 94762; 96372; 99152; 99153; 99285-25; A9270; A9500; C1785; C1898; G0378; J0461; J0690; J0706; J1644; J2250; J2785; J3010; J7030; J7040; J7050; Q9967

== ENCOUNTER 2024-10-28 18:12 | Inpatient (IN) | payer OTHER, MEDICARE ==
[~2024-10-28] VITALS: Ht 170.2 cm; Wt 77.0 kg
[~2024-10-28 18:12] MED LIST changes: +ACET325 PO; +ALEVAZOL56.7 G1 TOP; +AMLO5 PO; +ASCO500 PO; +CALCIUM 250 MG1 EACH PO; +Diovan40 MG PO; +FLUTICASONE-SAL12 G1 INH; +JARDIANCE10 MG PO; +Ketoconazole120 ML TOP; +LIDO700A20 TOP; +LORA10ER PO; +[UNRECOGNIZED DRUG - OTHER] PO
[2024-10-28] MEDS ORDERED: HYDROmorphone HCl/Pf 1MG SYR IV ONE ×2 (18:20→20:25)
[2024-10-28] MEDS ORDERED: Ondansetron HCl 2 MG / ML 2ML Vial IV ONE (18:20)
[2024-10-28 18:29] LABS: BASOPHILS ABSOLUTE AUTO 0.02 K/mm3 (0.00-0.23); BASOPHILS PERCENT AUTO 0 % (0-2); EOSINOPHILS ABSOLUTE AUTO 0.30 K/mm3 (0.00-0.68); EOSINOPHILS PERCENT AUTO 4 % (0-6); Hematocrit 37.2 % (37.0-53.0); Hemoglobin 12.1 g/dL (13.5-17.5); IMMATURE GRAN ABSOLUTE AUTO 0.03 K/mm3 (0.00-0.10); IMMATURE GRAN PERCENT AUTO 0 % (0-1); LYMPHOCYTES ABSOLUTE AUTO 1.39 K/mm3 (0.84-5.20); LYMPHOCYTES PERCENT AUTO 20 % (21-46); MONOCYTES ABSOLUTE AUTO 0.93 K/mm3 (0.16-1.47); MONOCYTES PERCENT AUTO 13 % (4-13); Mean Corpuscular HGB Conc 32.5 g/dL (31.5-36.5); Mean Corpuscular Volume 99 fL (80-100); NEUTROPHILS ABSOLUTE AUTO 4.29 K/mm3 (1.96-9.15); NEUTROPHILS PERCENT AUTO 62 % (41-73); NRBC ABSOLUTE 0.00 K/mm3 (0.00-0.02); NRBC Auto 0.0 /100 WBC (0.0-0.2); Platelet Count 208 K/mm3 (150-400); RDW Coefficient Variation 13.8 % (11.7-14.2); RDW Standard Deviation 49.8 fL (35.1-46.3)
[2024-10-28 18:51] LABS: Alanine Aminotransfer (ALT/SGP 35.0 U/L (12-78); Albumin, Blood 3.3 g/dL (3.4-5.0); Albumin/Globulin Ratio 1.0 (0.8-1.8); Anion Gap 9.0 mmol/L (3-11); Aspartate Aminotrans (AST/SGOT 25.0 U/L (12-37); Bilirubin, Total 0.4 mg/dL (0.1-1.0); Blood Urea Nitrogen 50.0 mg/dL (8-24); CO2, Blood 23.0 mmol/L (21-32); Calcium, Blood 8.6 mg/dL (8.5-10.1); Chloride, Blood 109.0 mmol/L (98-108); Creatinine, Blood 3.25 mg/dL (0.60-1.20); Globulin, Blood 3.4 g/dL (2.2-4.0); Glucose, Blood 119.0 mg/dL (70-99); Potassium, Blood 5.3 mmol/L (3.5-5.5); Sodium, Blood 136.0 mmol/L (136-145); Total Protein, Blood 6.7 g/dL (6.4-8.2)
[2024-10-28] MEDS ORDERED: Ondansetron HCl 2 MG / ML 2ML Vial IV PRN (20:45)
[2024-10-28] MEDS ORDERED: FentaNYL Citrate 50 MCG/ML 2 ML Injection IV PRN (20:45)
[2024-10-28] MEDS ORDERED: NS 1,000 ML IV SCH (20:45)
[2024-10-28 22:32] VITALS: BP 134/88
--- NOTE | 2024-10-28 23:20 | NUR ---
ARRIVAL NOTE PT ARRIVED TO UNIT VIA GURNEY FROM ED R/T LEFT HIP FX FROM GLF. PT A/OX4 WITH VSS. MISSY PO INTAKE. DENIES N/V, CP, N/T, SOB. ON 2L NC R/T DESAT POST IV NARCTIC ADMINISTRATION IN ED. CONT BIOX IN PLACE, SPO2 AT 96%. ABLE TO WIGGLE FINGERS AND TOES. PAIN MANAGED PER EMAR. ORIENTATION TO ROOM PROVIDED. PT DENIED NEEDS OR CONCERNS AT THIS TIME. HAS CALL LIGHT IN REACH.
[2024-10-28] MEDS ORDERED: Formoterol/Mometasone MDI 5/200 mcg 13 GM INH SCH (23:55)
--- NOTE | 2024-10-29 03:23 | NUR ---
SHIFT SUMMARY NO ACUTE CHANGES SINCE ADMIT. IS A/OX4. PAIN MANAGED AND IVF INFUSING PER EMAR. NPO SINCE MIDNIGHT. PLAN ORTHO CONSULT AND POSSIBLE SURGERY TODAY. PT IS CURRENTLY RESTING IN BED WITH CALL LIGHT IN REACH.
[2024-10-29 04:54] VITALS: BP 121/89
[2024-10-29 05:05] LABS: BASOPHILS ABSOLUTE AUTO 0.02 K/mm3 (0.00-0.23); BASOPHILS PERCENT AUTO 0 % (0-2); EOSINOPHILS ABSOLUTE AUTO 0.13 K/mm3 (0.00-0.68); EOSINOPHILS PERCENT AUTO 2 % (0-6); Hematocrit 34.5 % (37.0-53.0); Hemoglobin 11.2 g/dL (13.5-17.5); IMMATURE GRAN ABSOLUTE AUTO 0.01 K/mm3 (0.00-0.10); IMMATURE GRAN PERCENT AUTO 0 % (0-1); LYMPHOCYTES ABSOLUTE AUTO 0.64 K/mm3 (0.84-5.20); LYMPHOCYTES PERCENT AUTO 9 % (21-46); MONOCYTES ABSOLUTE AUTO 0.84 K/mm3 (0.16-1.47); MONOCYTES PERCENT AUTO 12 % (4-13); Mean Corpuscular HGB Conc 32.5 g/dL (31.5-36.5); Mean Corpuscular Volume 100 fL (80-100); NEUTROPHILS ABSOLUTE AUTO 5.39 K/mm3 (1.96-9.15); NEUTROPHILS PERCENT AUTO 77 % (41-73); NRBC ABSOLUTE 0.00 K/mm3 (0.00-0.02); NRBC Auto 0.0 /100 WBC (0.0-0.2); Platelet Count 169 K/mm3 (150-400); RDW Coefficient Variation 13.9 % (11.7-14.2); RDW Standard Deviation 50.3 fL (35.1-46.3)
[2024-10-29 05:30] LABS: Alanine Aminotransfer (ALT/SGP 32.0 U/L (12-78); Albumin, Blood 3.1 g/dL (3.4-5.0); Albumin/Globulin Ratio 1.0 (0.8-1.8); Anion Gap 8.0 mmol/L (3-11); Aspartate Aminotrans (AST/SGOT 18.0 U/L (12-37); Bilirubin, Total 0.5 mg/dL (0.1-1.0); Blood Urea Nitrogen 45.0 mg/dL (8-24); CO2, Blood 26.0 mmol/L (21-32); Calcium, Blood 8.6 mg/dL (8.5-10.1); Chloride, Blood 110.0 mmol/L (98-108); Creatinine, Blood 3.18 mg/dL (0.60-1.20); Globulin, Blood 3.1 g/dL (2.2-4.0); Glucose, Blood 123.0 mg/dL (70-99); Potassium, Blood 5.5 mmol/L (3.5-5.5); Sodium, Blood 138.0 mmol/L (136-145); Total Protein, Blood 6.2 g/dL (6.4-8.2)
[2024-10-29 07:28] VITALS: BP 117/71
--- NOTE | 2024-10-29 07:59 | NUR ---
OK TO EAT TODAY PER DR. GARCIA, PLAN FOR OR TOMORROW WITH DR. HOWELL.
[2024-10-29] MEDS ORDERED: AVACOPAN 10 MG PO SCH (09:00)
[2024-10-29] MEDS ORDERED: Isosorbide Mononitrate 60 MG TABCR PO SCH (09:00)
[2024-10-29] MEDS ORDERED: Fluticasone 0.05% Nasal Spray SCH (09:00)
--- NOTE | 2024-10-29 09:02 | NUR ---
RADHA PER DR GARCIA, DUE TO ELIQUIS DOSING AT HOME. SURGERY TO BE DELAYED UNTIL 10/30/24. PT OK TO EAT TDAY.
--- NOTE | 2024-10-29 15:05 | NUR ---
Spiritual care Visit. Pt. is awake in bed when he welcomes my visit. Pt. recognized this chapalin from a recent visit to the hospital when he received a pacemaker. Pt. is pleasant. Facilitated an update. Pt. verbalized that his two daughters (one from [place] and the other from [place]) would be present fo his surgery tomorrow. Pt. displayed evidence of confidence. Took Pt. by the hand and prayed with him. Pt. verbalized gratitude for the spiritual care visit and shook this flame cutting machine operator's hand.
[2024-10-29 15:07] VITALS: BP 110/79
--- NOTE | 2024-10-29 16:30 | NUR ---
SUMMARY ASSUMED CARE OF PT @0700. VSS. PAINFUL - OBTAINED PO MEDS AFTER TALKING TO DR EVANS. PAIN BETTER CONTROLLED BETWEEN PO AND IV PAIN MED ADMINISTRATION. PT ON TELE - AFLUTTER W/ OCCASIONAL PACED BEATS. PT BEDREST WITH L HIP SLIGHTLY EXTERNALLY ROTATED. VOIDING WELL WITH URINAL. TOLERATING PO INTAKE WELL. PT BEING REPOSITIONED WITH STAFF. OTHERWISE, RESTING IN BED, PREPARING FOR SURGERY IN AM - WILL BE NPO AFTER MIDNIGHT. CALL LIGHT WITHIN REACH.
[2024-10-29 20:04] VITALS: BP 126/85
[2024-10-30] VITALS (21 sets, daily range): BP systolic 113–156; BP diastolic 73–98
[2024-10-30] MEDS ORDERED: CeFAZolin Sodium 2,000 MG in NS 100 ML IV SCH (06:00)
[2024-10-30] MEDS ORDERED: Tranexamic Acid 100 ML IV SCH (06:00)
[2024-10-30] MEDS ORDERED: Ropivacaine 0.5% HCl/Pf 123.125 MG,EPINEPHrine HCL 0.25 MG,Ketorolac Tromethamine 15 MG... INFIL SCH (06:00)
[2024-10-30 06:01] LABS: BASOPHILS ABSOLUTE AUTO 0.02 K/mm3 (0.00-0.23); BASOPHILS PERCENT AUTO 0 % (0-2); EOSINOPHILS ABSOLUTE AUTO 0.12 K/mm3 (0.00-0.68); EOSINOPHILS PERCENT AUTO 2 % (0-6); Hematocrit 34.7 % (37.0-53.0); Hemoglobin 11.1 g/dL (13.5-17.5); IMMATURE GRAN ABSOLUTE AUTO 0.02 K/mm3 (0.00-0.10); IMMATURE GRAN PERCENT AUTO 0 % (0-1); LYMPHOCYTES ABSOLUTE AUTO 0.52 K/mm3 (0.84-5.20); LYMPHOCYTES PERCENT AUTO 7 % (21-46); MONOCYTES ABSOLUTE AUTO 1.05 K/mm3 (0.16-1.47); MONOCYTES PERCENT AUTO 13 % (4-13); Mean Corpuscular HGB Conc 32.0 g/dL (31.5-36.5); Mean Corpuscular Volume 101 fL (80-100); NEUTROPHILS ABSOLUTE AUTO 6.27 K/mm3 (1.96-9.15); NEUTROPHILS PERCENT AUTO 78 % (41-73); NRBC ABSOLUTE 0.00 K/mm3 (0.00-0.02); NRBC Auto 0.0 /100 WBC (0.0-0.2); Platelet Count 161 K/mm3 (150-400); RDW Coefficient Variation 14.3 % (11.7-14.2); RDW Standard Deviation 53.0 fL (35.1-46.3)
[2024-10-30 06:41] LABS: Anion Gap 8.0 mmol/L (3-11); Blood Urea Nitrogen 41.0 mg/dL (8-24); CO2, Blood 25.0 mmol/L (21-32); Calcium, Blood 8.8 mg/dL (8.5-10.1); Chloride, Blood 110.0 mmol/L (98-108); Creatinine, Blood 2.92 mg/dL (0.60-1.20); Glucose, Blood 113.0 mg/dL (70-99); Potassium, Blood 5.7 mmol/L (3.5-5.5); Sodium, Blood 137.0 mmol/L (136-145)
--- NOTE | 2024-10-30 06:43 | NUR ---
SHIFT SUMMARY NO ACUTE EVENTS OVERNIGHT; PT NPO FOR SURGERY TODAY.
--- NOTE | 2024-10-30 12:37 | NUR ---
PT W/ DAY SURGERY NURSES @4933
--- NOTE | 2024-10-30 12:41 | NUR ---
PT TRANSPORTED TO [facility]. AGREES WITH PLANNED SURGERY. DENIES COMPLAINTS AT PRESENT.
[2024-10-30] MEDS ORDERED: Ropivacaine 0.5% HCL/PF 5 MG/ML 30ML Vial ONE (12:53)
[2024-10-30] MEDS ORDERED: Dexamethasone Sod Phos 10 MG/ML 1ML VIAL ONE ×2 (12:53→13:55)
[2024-10-30] MEDS ORDERED: Midazolam HCl 1MG / ML 2ML Vial ONE (12:56)
--- NOTE | 2024-10-30 13:12 | NUR ---
RESUMED CARE OF PATIENT FROM J LUIS COOPER RN.
[2024-10-30] MEDS ORDERED: Ropivacaine 0.5% HCl/Pf 123.125 MG,EPINEPHrine HCL 0.25 MG,Clonidine HCl/Pf 40 MCG in N... INFIL SCH (13:15)
--- NOTE | 2024-10-30 13:20 | NUR ---
3-LEAD EKG INTACT WITH INTERMITTENT BP AT EVERY 3 IN, CONTINUOUS PULSE OX INTACT. TIME OUT WITHDR MACIAS FOR NERVE BLOCK. 2L O2/NC INTACT.
--- NOTE | 2024-10-30 13:38 | NUR ---
BLOCK START TIME 1326, STOP TIME 1332. BIOX DROPPED TO 90% AT 2L/NC AFTER DR MACIAS ADMINISTERED VERSED 1MG. BIOX NOW 93% ON 4L/NC. PATIENT RESTING QUIETLY, EASILLY ROUSES TO VOICE. NO C/O. VSS THROUGHOUT BLOCK PLACEMENT.
--- NOTE | 2024-10-30 13:48 | NUR ---
J LUIS COOPER RN RESUMING CARE OF PATIENT. REPORT GIVEN.
[2024-10-30] MEDS ORDERED: Etomidate 2MG / ML 10ML Vial ONE (13:49)
[2024-10-30] MEDS ORDERED: Ondansetron HCl 2 MG / ML 2ML Vial ONE (13:55)
[2024-10-30] MEDS ORDERED: ePHEDrine Sulfate 50 MG/ML 1ML Injection ONE (13:56)
[2024-10-30] MEDS ORDERED: FentaNYL Citrate 50 MCG/ML 2 ML Injection ONE (14:03)
[2024-10-30] MEDS ORDERED: HydrALAZINE HCl 20 MG / ML 1ML Vial IV PRN (15:05)
[2024-10-30] MEDS ORDERED: FentaNYL Citrate 50 MCG/ML 2 ML Injection IV PRN ×2 (15:05→15:10)
[2024-10-30] MEDS ORDERED: Ondansetron HCl 2 MG / ML 2ML Vial IV PRN (15:10)
[2024-10-30] MEDS ORDERED: Albuterol 2.5 MG/3 ML VIAL INH PRN (15:10)
--- NOTE | 2024-10-30 17:02 | NUR ---
post surgery PT TO ROOM @1630. SOMNOLENT BUT ANSWERS QUESTIONS. ON 2LNC, SPO2 <90%, PLACED ON 5L OXIMASK, NOW SPO2 >92%. TELE CALLED REGARDING ST ELEVATION TO V LEAD, EKG OBTAINED, DR GONSALEZ CALLED - PROVIDER VIEWNG EKG NOW, AWAITING ORDERS, IF INDICATED, PT DENYING CP/PRESSURE CURRENTLY. VSS STABLE AT THIS TIME.
--- NOTE | 2024-10-30 18:13 | NUR ---
SUMMARY ASSUMED CARE OF PT @0700. AXO4. VSS PREOP. ON 2LNC. SEE POSTOP NOTE. PT CAME OUT OF SURGERY ON 5LNC, SWITCHED TO OXIMASK DUE TO MOUTH BREATHING, HAS SINCE SWITCHED BACK TO NC NOW THAT ANESTHESIA HAS WORN OFF MORE AND PT IS MORE ALERT. TITRATED FROM 5-6L TO 4LNC CURRENTLY, WILL CONTINUE TO TITRATE DOWN. VSS POST OP. PRINEO/TELFA DRESSING TO HIP CDI. SPINAL BLOCK WEARING OFF. PT ABLE TO WIGGLE TOES AND REPORTS SENSATION WITH PALPATION. REMIANS AFLUTTER. SEE POSTOP NOTE, DR GANDHI;EN REVIEWED EKG, STATES TO MONITOR FOR NOW, REPEAT EKG IF PT REPRTS CP/PRESSURE OR TELEMETRY CHANGES. DAUGHTERS IN ROOM FOR PT'S ARRIVAL. ANXIOUS FOR PT EVAL BUT AWARE THAT IT IS PROBABLE PT WONT SEE PT UNTIL TOMORROW. BED ALARM ON. PT TOELRARTING PO INTAKE WELL.
[2024-10-31 00:16] VITALS: BP 115/72
[2024-10-31 03:36] VITALS: BP 118/68
[2024-10-31 05:44] LABS: BASOPHILS ABSOLUTE AUTO 0.01 K/mm3 (0.00-0.23); BASOPHILS PERCENT AUTO 0 % (0-2); EOSINOPHILS ABSOLUTE AUTO 0.00 K/mm3 (0.00-0.68); EOSINOPHILS PERCENT AUTO 0 % (0-6); Hematocrit 33.1 % (37.0-53.0); Hemoglobin 10.4 g/dL (13.5-17.5); IMMATURE GRAN ABSOLUTE AUTO 0.08 K/mm3 (0.00-0.10); IMMATURE GRAN PERCENT AUTO 1 % (0-1); LYMPHOCYTES ABSOLUTE AUTO 0.32 K/mm3 (0.84-5.20); LYMPHOCYTES PERCENT AUTO 2 % (21-46); MONOCYTES ABSOLUTE AUTO 0.56 K/mm3 (0.16-1.47); MONOCYTES PERCENT AUTO 4 % (4-13); Mean Corpuscular HGB Conc 31.4 g/dL (31.5-36.5); Mean Corpuscular Volume 103 fL (80-100); NEUTROPHILS ABSOLUTE AUTO 12.26 K/mm3 (1.96-9.15); NEUTROPHILS PERCENT AUTO 93 % (41-73); NRBC ABSOLUTE 0.00 K/mm3 (0.00-0.02); NRBC Auto 0.0 /100 WBC (0.0-0.2); Platelet Count 165 K/mm3 (150-400); RDW Coefficient Variation 13.8 % (11.7-14.2); RDW Standard Deviation 52.5 fL (35.1-46.3)
[2024-10-31 05:53] LABS: Anion Gap 10.0 mmol/L (3-11); Blood Urea Nitrogen 48.0 mg/dL (8-24); CO2, Blood 25.0 mmol/L (21-32); Calcium, Blood 8.5 mg/dL (8.5-10.1); Chloride, Blood 106.0 mmol/L (98-108); Creatinine, Blood 3.15 mg/dL (0.60-1.20); Glucose, Blood 150.0 mg/dL (70-99); Potassium, Blood 5.3 mmol/L (3.5-5.5); Sodium, Blood 136.0 mmol/L (136-145)
--- NOTE | 2024-10-31 06:06 | NUR ---
SHIFT SUMMARY NOC. PT POD 1 FOR LEFT ANKUR HIP. DRESSING IS C/D/I. PT A/O X4, WAS SLEEPY AT START OF SHIFT. PT DENIES PAIN AND DECLINED PAIN MEDICATION WHEN OFFERED. PT WEANED FROM 5L TO 4L VIA N/C WITH CONTIN BIOX IN PLACE. PT HAD NO DESAT EVENTS. TELEMETRY INTACT WITHOUT REPORTED EVENTS. DENIES CHEST PAIN OR PRESSURE. PT VOIDING URINE VIA URINAL. PT CAN WIGGLE TOES/MOVE FEET BUT REPORTS WEAKNESS TO LLE, PT EAGAR TO WORK WITH THERAPY TODAY. PT MAKES NEEDS KNOWN, CALL LIGHT IN REACH.
[2024-10-31 07:23] VITALS: BP 124/85
[2024-10-31 14:42] VITALS: BP 133/76
--- NOTE | 2024-10-31 17:04 | NUR ---
SUMMARY PT AXO4. TITRATED OFF OF 02 AND THEN BACK ON TO 1-2LNC WITH REST/ACTIVITY. PT TOLERATED PHYSICAL THERAPY WELL TODAY AND HAS BEEN AMBULATING THE [place] MULTIPLE TIMES THIS SHIFT WITH STAFF ASSIST FWW AND GAITBELT. PT TOLERATING PO INTAKE WELL. VOIDING WELL. FAMILY IN ROOM AT MULTIPLE TIES T/O SHIFT - ASSISTING WITH [facility]. PT AWARE. USING CALL LIGHT APPROPRIATELY. VSS. INCISION SITE TO L HIP CDI.
[2024-10-31 20:39] VITALS: BP 129/79
[2024-11-01 05:02] VITALS: BP 122/78
[2024-11-01 05:59] LABS: BASOPHILS ABSOLUTE AUTO 0.00 K/mm3 (0.00-0.23); BASOPHILS PERCENT AUTO 0 % (0-2); EOSINOPHILS ABSOLUTE AUTO 0.00 K/mm3 (0.00-0.68); EOSINOPHILS PERCENT AUTO 0 % (0-6); Hematocrit 29.1 % (37.0-53.0); Hemoglobin 9.6 g/dL (13.5-17.5); IMMATURE GRAN ABSOLUTE AUTO 0.07 K/mm3 (0.00-0.10); IMMATURE GRAN PERCENT AUTO 1 % (0-1); LYMPHOCYTES ABSOLUTE AUTO 0.53 K/mm3 (0.84-5.20); LYMPHOCYTES PERCENT AUTO 4 % (21-46); MONOCYTES ABSOLUTE AUTO 1.33 K/mm3 (0.16-1.47); MONOCYTES PERCENT AUTO 11 % (4-13); Mean Corpuscular HGB Conc 33.0 g/dL (31.5-36.5); Mean Corpuscular Volume 99 fL (80-100); NEUTROPHILS ABSOLUTE AUTO 10.11 K/mm3 (1.96-9.15); NEUTROPHILS PERCENT AUTO 84 % (41-73); NRBC ABSOLUTE 0.00 K/mm3 (0.00-0.02); NRBC Auto 0.0 /100 WBC (0.0-0.2); Platelet Count 168 K/mm3 (150-400); RDW Coefficient Variation 14.1 % (11.7-14.2); RDW Standard Deviation 51.9 fL (35.1-46.3)
[2024-11-01 06:28] LABS: Anion Gap 11.0 mmol/L (3-11); Blood Urea Nitrogen 63.0 mg/dL (8-24); CO2, Blood 22.0 mmol/L (21-32); Calcium, Blood 8.5 mg/dL (8.5-10.1); Chloride, Blood 105.0 mmol/L (98-108); Creatinine, Blood 3.31 mg/dL (0.60-1.20); Glucose, Blood 109.0 mg/dL (70-99); Potassium, Blood 6.1 mmol/L (3.5-5.5); Sodium, Blood 132.0 mmol/L (136-145)
[2024-11-01 07:45] VITALS: BP 123/79
[2024-11-01 11:43] VITALS: BP 112/67
--- NOTE | 2024-11-01 12:26 | NUR ---
ASSUMED CARE OF PT @1200 FROM CARMEN Palma RN - REPORT RECEIVED. PT AXO4. AMBULATING WELL WITH FWW SBA. CRITICAL HIGH POTASSIUM NOTED - AWAITING ORDERS FROM DR GONSALEZ. VSS.
[2024-11-01 14:43] VITALS: BP 120/73
[2024-11-01 16:35] LABS: Anion Gap 11.0 mmol/L (3-11); Blood Urea Nitrogen 66.0 mg/dL (8-24); CO2, Blood 24.0 mmol/L (21-32); Calcium, Blood 8.5 mg/dL (8.5-10.1); Chloride, Blood 105.0 mmol/L (98-108); Creatinine, Blood 3.19 mg/dL (0.60-1.20); Glucose, Blood 158.0 mg/dL (70-99); Potassium, Blood 4.8 mmol/L (3.5-5.5); Sodium, Blood 135.0 mmol/L (136-145)
--- NOTE | 2024-11-01 17:43 | NUR ---
SUMMARY POST ASSUMPTION OF CARE. PT AXO4. AMBULATING WELL. POTASSIUM BLOOD LEVEL NOW WNL , LOKELMA DC'D PER DR GONSALEZ. PT HOPEFUL TO GO HOME SOON. VOIDING WELL. TOLERATING PO INTAKE WELL. VSS. ON 2LNC.
[2024-11-01 20:05] VITALS: BP 112/76
[2024-11-01 23:07] VITALS: BP 105/78
[2024-11-02 03:16] VITALS: BP 124/69
[2024-11-02 05:26] LABS: BASOPHILS ABSOLUTE AUTO 0.02 K/mm3 (0.00-0.23); BASOPHILS PERCENT AUTO 0 % (0-2); EOSINOPHILS ABSOLUTE AUTO 0.06 K/mm3 (0.00-0.68); EOSINOPHILS PERCENT AUTO 1 % (0-6); Hematocrit 28.8 % (37.0-53.0); Hemoglobin 9.4 g/dL (13.5-17.5); IMMATURE GRAN ABSOLUTE AUTO 0.03 K/mm3 (0.00-0.10); IMMATURE GRAN PERCENT AUTO 0 % (0-1); LYMPHOCYTES ABSOLUTE AUTO 0.73 K/mm3 (0.84-5.20); LYMPHOCYTES PERCENT AUTO 9 % (21-46); MONOCYTES ABSOLUTE AUTO 1.06 K/mm3 (0.16-1.47); MONOCYTES PERCENT AUTO 13 % (4-13); Mean Corpuscular HGB Conc 32.6 g/dL (31.5-36.5); Mean Corpuscular Volume 100 fL (80-100); NEUTROPHILS ABSOLUTE AUTO 6.06 K/mm3 (1.96-9.15); NEUTROPHILS PERCENT AUTO 76 % (41-73); NRBC ABSOLUTE 0.00 K/mm3 (0.00-0.02); NRBC Auto 0.0 /100 WBC (0.0-0.2); Platelet Count 148 K/mm3 (150-400); RDW Coefficient Variation 14.2 % (11.7-14.2); RDW Standard Deviation 52.1 fL (35.1-46.3)
--- NOTE | 2024-11-02 05:32 | NUR ---
SHIFT SUMMARY NOC. PT S/P LEFT ANKUR HIP. DRESSING C/D/I. PT A/O X4. PT WENT FOR A WALK THIS SHIFT WITH STAFF. PT MEDICATED FOR PAIN X1 WITH ORAL TYLENOL. PT ON 2L VIA N/C WITH BIOX IN PLACE. TELEMETRY INTACT WITHOUT EVENTS. PT VOIDING URINE VIA URINAL. PT MAKES NEEDS KNOWN, CALL LIGHT IN REACH.
[2024-11-02 05:56] LABS: Anion Gap 10.0 mmol/L (3-11); Blood Urea Nitrogen 60.0 mg/dL (8-24); CO2, Blood 23.0 mmol/L (21-32); Calcium, Blood 8.2 mg/dL (8.5-10.1); Chloride, Blood 107.0 mmol/L (98-108); Creatinine, Blood 3.07 mg/dL (0.60-1.20); Glucose, Blood 105.0 mg/dL (70-99); Potassium, Blood 4.9 mmol/L (3.5-5.5); Sodium, Blood 135.0 mmol/L (136-145)
[2024-11-02 07:35] VITALS: BP 124/77
--- NOTE | 2024-11-02 14:15 | NUR ---
PT BACK FROM SP CATH PLACEMENT. 1200CC DRAINED IN SMALL PARTS SHAPER OPERATOR. SP CATH DRAINING SANGUINOUS/SEROSANGUINOUS FLUIDS. PT HAVING APNEIC PERIODS LASTING APPROX 30 SECONDS. PT POSITIONED FOR COMFORT. FRIEND/FAMILY IN TO SPEND TIME WITH PT.
[2024-11-02 14:43] VITALS: BP 114/69
[2024-11-02] MEDS ORDERED: OXYC5 PO (15:42)
[2024-11-02] MEDS ORDERED: FT SENNA-S 8.61 EACH PO (15:49)
--- NOTE | 2024-11-02 16:10 | NUR ---
IV DC'D INTACT. PT REMOVED FROM CONTINUOUS OXIMETRY. WILL PLAN FOR DC WHEN DAUGHTER ARRIVES FROM [place].
--- NOTE | 2024-11-02 16:51 | NUR ---
Spiritual Care visit conducted. Nico (pt) is awake and conversational. Facilitated an update- pt is waiting to be picked up by his daughter and has the support of family during the recovery of his hip injury. Pt describes having a close connection to a yarsanism that was disrupted by a potential social misunderstanding that caused him great anger. Provided compassionate listening and helped pt identify his emotions surrounding this event. Pt has been trying to remain connected socially and often visits different churches but hasn't connected with one so far. Encouraged pt in his journey to find a new community. Prayed with pt with particular attention to his ongoing search. Pt thanked me for the visit and displayed signs of being encouraged by the visit.
--- NOTE | 2024-11-02 17:03 | NUR ---
L HIP DRESSING TAKEN DOWN AND CONVERTED TO 10" AQUACEL AG DRESSING PER DR HOWELL. PT PROVIDED EXTRA AND INSTRUCTED TO CHANGE DRESSING IN ONE WEEK.
--- NOTE | 2024-11-02 18:30 | NUR ---
DC INSTRUCT REVIEWED. WALKER AND GAIT BELT PROVIDED BY CARE MANAGEMENT. DC'D TO POV INTO SELF CARE ACCOMPANIED BY ADULT DAUGHTER WITH PRINTED INSTRUCT AND HANDWRITTEN RX OXYCODONE.
--- NOTE | 2024-11-02 18:53 | NUR ---
PALLIATIVE CARE VISIT: 1730 MET WITH PT IN HIS ROOM. DAUGHTER IS PRESENT. DISCUSSED SYMPTOM MANAGEMENT OF PAIN. PT RECEPTIVE TO EDUCATION. ALSO EDUCATION PROVIDED ON SAFETY REGARDING THE HANDLING OF HIS PET DOG ANDREA. PT STATES HE FELL BECAUSE THE DOG WAS PULLING TO HARD ON HIM AND THE HIS DOG JUMPS ON HIM. DISCUSSED USE OF SPECIAL LEASHES AND HARNESSES THAT CAN BE USED TO AID IN DECREASED RISK OF DOG PULLING OR JUMPING. EDUCATED ON HOME HEALTH SERVICES. AND USE OF LIFE ALERT. DAUGHTER PLANS TO STAY WITH PT UNTIL HE IS WELL ENOUGH TO BE ALONE. DISCUSSED SAFETY IN THE HOME. CM GOT PT A WALKER DUE TO REPORTS HIS WALKER WAS MISSING PARTS ON IT. ALSO DISCUSSED S/S TO WATCH FOR INFECTION AT INCISION SITE. PT V/U. PLAN TO DISCHARGE THIS EVENING HOME WITH HOME HEALTH. PER PT HE HAS ALREAD[facility]
== END 2024-11-02 18:30 | disposition home health service (06) | DRG 522 ==
LOC: ER 18:12 → SURS 20:24
PROVIDERS: Emergency Medicine; Internal Medicine; Orthopaedic Surgery; Student in an Organized Health Care Education/Training Program; ADMIT Internal Medicine
PROC: 0SRS01Z Replacement of Left Hip Joint, Femoral Surface with Metal Synthetic Substitute, Open Approach (ICD-10-PCS; principal; 2024-10-30 12:00)
DX: S72.012A Unspecified intracapsular fracture of left femur, initial encounter for closed fracture (principal); I13.0 Hypertensive heart and chronic kidney disease with heart failure and stage 1 through stage 4 chronic kidney disease, or unspecified chronic kidney disease; I50.32 Chronic diastolic (congestive) heart failure; N18.4 Chronic kidney disease, stage 4 (severe); I42.8 Other cardiomyopathies; K21.9 Gastro-esophageal reflux disease without esophagitis; E78.5 Hyperlipidemia, unspecified; N40.0 Benign prostatic hyperplasia without lower urinary tract symptoms; I49.5 Sick sinus syndrome; I77.82 Antineutrophilic cytoplasmic antibody [ANCA] vasculitis; D63.1 Anemia in chronic kidney disease; I48.0 Paroxysmal atrial fibrillation; R29.6 Repeated falls; I27.21 Secondary pulmonary arterial hypertension; J43.9 Emphysema, unspecified; E87.5 Hyperkalemia; Z96.652 Presence of left artificial knee joint; Z79.01 Long term (current) use of anticoagulants; Z79.51 Long term (current) use of inhaled steroids; Z79.84 Long term (current) use of oral hypoglycemic drugs; Z79.899 Other long term (current) drug therapy; Z88.5 Allergy status to narcotic agent; Z88.8 Allergy status to other drugs, medicaments and biological substances; Z87.891 Personal history of nicotine dependence; W01.0XXA Fall on same level from slipping, tripping and stumbling without subsequent striking against object, initial encounter
CPT/HCPCS: 36415; 70450; 72170; 73502; 73700; 80048; 80053; 83880; 84484; 85025; 86850; 86900; 86901; 86923; 93005; 93010; 94640; 94664; 94762; 96374; 96375; 96376; 97110; 97116; 97161; 97530; 99285-25; A9270; J0165; J0690; J0735; J1100; J1171; J2250; J2405; J2704; J2795; J3010; J7030; J7120

== ENCOUNTER → 2025-03-18 | Outpatient (CLI) | payer MEDICARE ==
[~2025-03-18] MED LIST changes: +FT SENNA-S 8.61 EACH PO; +OXYC5 PO
[2025-03-18 16:41] LABS: Source, Urine Clean Catch
[2025-03-18 17:53] LABS: Bilirubin, Urine Neg (Neg); Color, Urine Yellow (P-Yellow); Glucose Qualitative, Urine 3+ (Neg); Ketones, Urine Neg (Neg); Leukocyte Esterase, Urine Neg (Neg); Protein, Urine 2+ (Neg); Specific Gravity, Urine 1.015 (1.003-1.022); Urobilinogen, Urine NORM (Normal)
[2025-03-18 18:13] LABS: Red Blood Cells, Urine 0-2 /hpf (0-2); White Blood Cells, Urine 0-2 /hpf (0-5)
== END ==
LOC: LAB 15:45 → LAB SHORT 15:45
PROVIDERS: Hospitalist
DX: I12.9 Hypertensive chronic kidney disease with stage 1 through stage 4 chronic kidney disease, or unspecified chronic kidney disease (principal); N18.4 Chronic kidney disease, stage 4 (severe); M31.7 Microscopic polyangiitis
CPT/HCPCS: 81001